=== PATIENT | male | born 1960 | race Hispanic/Latino ===

== ENCOUNTER 2018-05-23 05:50 | Observation (INO) | payer MEDICARE, OTHER ==
[2018-05-21 08:45] VITALS: BP 149/82
[2018-05-21 09:07] LABS: BASOPHILS % (AUTO) 0.5 % (0.0-5.0); EOSINOPHILS % (AUTO) 2.3 % (0.0-8.0); HEMATOCRIT 42.7 % (42-54); MEAN CORPUSCULAR HEMOGLOBIN 30.1 pg (27.0-33.0); MEAN CORPUSCULAR HGB CONC 33.5 g/dL (32.0-36.0); MEAN CORPUSCULAR VOLUME 89.8 fL (79-99); MONOCYTES % (AUTO) 11.6 % (3.0-13.0); NEUTROPHILS % (AUTO) 45.6 % (40.0-77.0); PLATELET COUNT (AUTO) 267 K/uL (130-400); RED BLOOD CELL COUNT(AUTO) 4.75 MIL/uL (4.50-6.20); RED CELL DISTRIBUTION WIDTH 14.2 % (11.0-15.5); WHITE BLOOD COUNT (AUTO) 5.2 K/uL (4.8-10.8)
[2018-05-21 09:12] LABS: APPEARANCE,URINE Clear (CLEAR); BILIRUBIN,URINE Negative (NEGATIVE); COLOR,URINE Yellow (YELLOW); GLUCOSE, URINE (UA) Negative (NEGATIVE); KETONES,URINE Negative (NEGATIVE); LEUKOCYTE ESTERASE ,URINE Negative (NEGATIVE); NITRATE,URINE Negative (NEGATIVE); OCCULT BLOOD,URINE Negative (NEGATIVE); PH,URINE 5.5 (5.0-8.0); PROTEIN,URINE Negative (NEGATIVE)
[2018-05-21 09:16] LABS: CREATININE 1.1 mg/dL (0.5-1.5); POTASSIUM 4.2 mmol/L (3.5-5.1)
[2018-05-21 09:20] LABS: INR 0.95 (0.85-1.15); PARTIAL THROMBOPLASTIN TIME 26.8 SEC (26.3-35.5)
--- NOTE | 2018-05-21 09:24 | NUR ---
[facility] USED TELLO #[id number]
[2018-05-21 09:42] LABS: BACTERIA,URINE Rare /HPF (None Seen); RBC,URINE 0-1 /HPF (0-1); SQUAMOUS EPITHELIAL CELL,UR Rare /HPF (0-2); WBC,URINE 0-1 /HPF (0-1)
[2018-05-23] VITALS (11 sets, daily range): BP systolic 96–132; BP diastolic 65–81
[~2018-05-23] VITALS: Ht 170.2 cm; Wt 80.1 kg
[~2018-05-23 05:50] MED LIST: SODIUM CHLORIDE 0.9% 500ML 500 ML IV SCH
[2018-05-23] MEDS ORDERED: MELA5TAB14 PO (07:03)
[2018-05-23] MEDS ORDERED: OMEP20CA10 PO (07:03)
[2018-05-23] MEDS ORDERED: ASPI-555 PO (07:03)
[2018-05-23] MEDS ORDERED: RANO500T3 PO (07:03)
[2018-05-23] MEDS ORDERED: LEVO25TA54 PO (07:03)
[2018-05-23] MEDS ORDERED: OMEGA 3 PO (07:03)
[2018-05-23] MEDS ORDERED: LISI10TA7 PO (07:03)
[2018-05-23] MEDS ORDERED: SIMV20TA6 PO (07:03)
[2018-05-23] MEDS ORDERED: NITR0.4T50 SL (07:03)
[2018-05-23] MEDS ORDERED: SODIUM CHLORIDE 0.9% 1000ML 1,000 ML IV ONE (07:09)
[2018-05-23] MEDS ORDERED: IOHEXOL-350 50ML VIAL IV ONE ×2 (08:56→11:07)
[2018-05-23] MEDS ORDERED: IOHEXOL 350 MG/ML 100ML INFUS..BTL IV ONE (08:56)
[2018-05-23] MEDS ORDERED: NITROGLYCERIN 5 MG/ML 10 ML VIAL IV ONE (08:56)
[2018-05-23] MEDS ORDERED: LIDOCAINE HCL 2% 20ML ONE (08:57)
[2018-05-23] MEDS ORDERED: MIDAZOLAM HCL 1 MG/ML 2ML VIAL ONE (09:30)
[2018-05-23] MEDS ORDERED: ATROPINE SULFATE 0.1 MG/ML 10 ML SYG IVP ONE (09:47)
[2018-05-23] MEDS ORDERED: ADENOSINE 90MG/30ML VIAL IV ONE (10:10)
[2018-05-23] MEDS ORDERED: HEPARIN SODIUM 1000UNIT/ML 10ML VIAL ONE (10:17)
[2018-05-23] MEDS ORDERED: ASPIRIN 325MG EC TAB 325 MG TABLET.DR PO ONE (10:45)
[2018-05-23] MEDS ORDERED: PRASUGREL HCL 10 MG TABLET ONE (10:45)
[2018-05-23] MEDS ORDERED: SODIUM CHLORIDE 0.9% 1000ML 1,000 ML IV SCH (12:07)
[2018-05-23] MEDS ORDERED: ACETAMINOPHEN 325 MG TAB PO PRN (12:15)
[2018-05-23] MEDS ORDERED: NITROGLYCERIN 0.4 MG SL TAB SL PRN (12:15)
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
[2018-05-23] MEDS: FISH OIL 1000 MG/CAP PO SCH ×2 (13:08→19:56)
--- NOTE | 2018-05-23 14:00 | NUR ---
STATUS BEDREST IN PROGRESS NO COMPLAINTS, RIGHT GROIN WNL. FAMILY IS AT BEDSIDE.
--- NOTE | 2018-05-23 15:00 | NUR ---
STATUS RESTING IN BED, RIGHT GROIN WNL. FAMILY AT BEDSIDE.
--- NOTE | 2018-05-23 17:00 | NUR ---
STATUS RESTING IN BED, RIGHT GROIN WNL. FAMILY AT BEDSIDE.
--- NOTE | 2018-05-23 17:46 | NUR ---
BEDREST COMPLETED RIGHT GROIN WNL. SITTING UPRIGHT IN BED, FAMILY AT BEDSIDE.
[2018-05-23] MEDS ORDERED: ASPIRIN 81MG TAB.CHEW PO SCH (21:00)
[2018-05-23] MEDS ORDERED: SIMVASTATIN 20 MG TABLET PO SCH (21:00)
--- NOTE | 2018-05-23 21:00 | NUR ---
PT RIGHT GROIN ASSESSED. SOFT TO TOUCH, NO TENDERNESS NOTED. NO BLEEDING AT SITE. PT BEDREST COMPLETE. ABLE TO AMBULATE. CONTINUES ON IV FLUIDS AT NS 100ML/HR. PT FAMILY AT BEDSIDE. SAMI SPEAKING. AAO3. PERRLA. ACTIVE BOWEL SOUNDS. LAST BM 05/23.
[2018-05-24 03:42] VITALS: BP 108/71
[2018-05-24 03:46] LABS: HEMATOCRIT 37.5 % (42-54); MEAN CORPUSCULAR HEMOGLOBIN 29.9 pg (27.0-33.0); MEAN CORPUSCULAR HGB CONC 33.3 g/dL (32.0-36.0); MEAN CORPUSCULAR VOLUME 89.8 fL (79-99); PLATELET COUNT (AUTO) 254 K/uL (130-400); RED BLOOD CELL COUNT(AUTO) 4.17 MIL/uL (4.50-6.20); RED CELL DISTRIBUTION WIDTH 14.4 % (11.0-15.5); WHITE BLOOD COUNT (AUTO) 6.5 K/uL (4.8-10.8)
[2018-05-24 04:12] LABS: CREATININE 1.1 mg/dL (0.5-1.5); TROPONIN I 0.26 ng/mL (0.00-0.06)
[2018-05-24] MEDS: FISH OIL 1000 MG/CAP PO SCH (07:34)
[2018-05-24 07:42] VITALS: BP 120/76
--- NOTE | 2018-05-24 08:00 | NUR ---
ASSESSMENT PT IS AAOX4 DENIES CP DENIES SOB DENIES SOB DENIES NV. RIGHT GROIN WNL DRESSING CLEAN DRY AND INTACT. NO COMPLAINTS. CALL LIGHT WITHIN REACH.
[2018-05-24] MEDS ORDERED: PRAS10TA6 PO (08:39)
[2018-05-24] MEDS ORDERED: PANTOPRAZOLE SODIUM 40 MG TABLET.DR PO SCH (09:00)
[2018-05-24] MEDS ORDERED: LISINOPRIL 10 MG TABLET PO SCH (09:00)
[2018-05-24] MEDS ORDERED: LEVOTHYROXINE 25 MCG TABLET PO SCH (09:00)
[2018-05-24] MEDS ORDERED: **HM** MELATONIN 5MG PO PRN (09:00)
[2018-05-24] MEDS ORDERED: PRASUGREL HCL 10 MG TABLET PO SCH (09:00)
--- NOTE | 2018-05-24 10:00 | NUR ---
DR Eros ORELLANA ROUNDED ORDERS RECEIVED
--- NOTE | 2018-05-24 10:50 | NUR ---
DISCHARGE PATIENT AND FAMILY VERBALIZE DC INSTRUCTIONS UNDERSTANDING. AGREE TO TAKE MEDS ORDERED AGREE TO FOLLOW UP WITH DR Eros ORELLANA. PIV REMOVED CATH TIP INTACT, TELE PACK REMOVED. DOWN VIA WC TO VEHICLE.
== END 2018-05-24 10:50 | disposition home or self-care (01) ==
LOC: DAH 05:50 → DAHIP 05:51 → 2AH 13:05
PROVIDERS: ADMIT Internal Medicine Cardiovascular Disease; ATTEND Internal Medicine Cardiovascular Disease
DX: I25.119 Atherosclerotic heart disease of native coronary artery with unspecified angina pectoris (principal); E03.9 Hypothyroidism, unspecified; E11.9 Type 2 diabetes mellitus without complications; E78.5 Hyperlipidemia, unspecified; E78.00 Pure hypercholesterolemia, unspecified; I10 Essential (primary) hypertension; I25.82 Chronic total occlusion of coronary artery; F41.9 Anxiety disorder, unspecified; Z79.02 Long term (current) use of antithrombotics/antiplatelets; Z79.82 Long term (current) use of aspirin; Z79.890 Hormone replacement therapy; Z79.899 Other long term (current) drug therapy; Z82.49 Family history of ischemic heart disease and other diseases of the circulatory system; Z80.9 Family history of malignant neoplasm, unspecified; Z79.01 Long term (current) use of anticoagulants
CPT/HCPCS: 36415 ×2; 71045; 80048 ×2; 80061; 81001; 82550; 82948 ×3; 83874; 84484; 85025; 85027; 85610; 85730; 93005 ×2; 93458; 93571; C1725 ×2; C1760; C1769 ×3; C1874; C1887 ×2; C1894 ×2; C9600; G0378 ×29; J0153; J1644 ×2; J2250; J3490 ×2; J7030 ×2; Q9965; Q9967 ×3; 99156; 99157; J0461

== ENCOUNTER 2018-05-28 18:36 | Emergency (ER) | payer OTHER ==
[~2018-05-28 18:36] MED LIST changes: +ASPI-555 PO; +LEVO25TA54 PO; +LISI10TA7 PO; +MELA5TAB14 PO; +NITR0.4T50 SL; +OMEGA 3 PO; +OMEP20CA10 PO; +PRAS10TA6 PO; +SIMV20TA6 PO; -SODIUM CHLORIDE 0.9% 500ML 500 ML IV SCH
[2018-05-28] MEDS ORDERED: ASPIRIN 325 MG TABLET ONE (19:11)
[2018-05-28 19:34] LABS: BASOPHILS % (AUTO) 0.5 % (0.0-5.0); EOSINOPHILS % (AUTO) 1.9 % (0.0-8.0); HEMATOCRIT 39.9 % (42-54); LYMPHOCYTES % (AUTO) 33.9 % (21.0-51.0); MEAN CORPUSCULAR HEMOGLOBIN 29.9 pg (27.0-33.0); MEAN CORPUSCULAR HGB CONC 33.5 g/dL (32.0-36.0); MEAN CORPUSCULAR VOLUME 89.4 fL (79-99); MONOCYTES % (AUTO) 11.5 % (3.0-13.0); NEUTROPHILS % (AUTO) 52.2 % (40.0-77.0); NUCLEATED RED BLOOD CELLS 0.1 % (0.0-0.19); PLATELET COUNT (AUTO) 273 K/uL (130-400); RED BLOOD CELL COUNT(AUTO) 4.46 MIL/uL (4.50-6.20); RED CELL DISTRIBUTION WIDTH 14.1 % (11.0-15.5); WHITE BLOOD COUNT (AUTO) 8.2 K/uL (4.8-10.8)
[2018-05-28] MEDS ORDERED: NITROGLYCERIN 1GM/1 INCH PACKET TD ONE (19:37)
[2018-05-28 19:48] LABS: INR 0.95 (0.85-1.15); PARTIAL THROMBOPLASTIN TIME 25.4 SEC (26.3-35.5)
[2018-05-28 20:32] LABS: POTASSIUM 3.6 mmol/L (3.5-5.1)
[2018-05-28 20:37] LABS: ALBUMIN 3.9 g/dL (3.5-5.0); BILIRUBIN,TOTAL 0.2 mg/dL (0.2-1.0); TOTAL PROTEIN, SERUM 7.9 g/dL (6.0-8.3)
== END 2018-05-29 00:08 | disposition home or self-care (01) ==
LOC: EDH 18:36
DX: R07.89 Other chest pain (principal); E78.5 Hyperlipidemia, unspecified; I10 Essential (primary) hypertension; K21.9 Gastro-esophageal reflux disease without esophagitis; I25.10 Atherosclerotic heart disease of native coronary artery without angina pectoris; Z79.899 Other long term (current) drug therapy
CPT/HCPCS: 36415; 71045; 80053; 82550; 84484; 85025; 85610; 85730; 93005

== ENCOUNTER → 2023-06-08 | Outpatient (CLI) | payer OTHER ==
[~2023-06-08] MED LIST changes: -ASPI-555 PO; +ASPI-556 PO; +LISI10TA24 PO; -LISI10TA7 PO; -OMEP20CA10 PO; +OMEP20CA12 PO; +SIMV-43 PO; -SIMV20TA6 PO
[2023-06-08] MEDS: REGADENOSON 0.4 MG/5 ML PF SYG IVP SCH (13:50)
== END | disposition home or self-care (01) ==
LOC: RAH 07:43
PROVIDERS: ATTEND Internal Medicine Cardiovascular Disease
DX: I25.119 Atherosclerotic heart disease of native coronary artery with unspecified angina pectoris (principal)
CPT/HCPCS: 78452; 93017; J2785; A9500 ×2; 96374

== ENCOUNTER 2023-08-12 22:15 | Emergency (ER) | payer OTHER ==
[~2023-08-12] VITALS: Ht 167.6 cm; Wt 77.1 kg
[~2023-08-12 22:15] MED LIST changes: -MELA5TAB14 PO; +MELA5TAB66 PO
[2023-08-12 23:15] LABS: BASOPHILS # (AUTO) 0.07 K/uL (0.00-0.20); BASOPHILS % (AUTO) 0.8 % (0.0-5.0); EOSINOPHILS # (AUTO) 0.25 K/uL (0.00-0.70); EOSINOPHILS % (AUTO) 2.7 % (0.0-8.0); HEMATOCRIT 38.2 % (42-54); IMMATURE GRANULOCYTE ABSOLUTE 0.04 K/uL (0-1); LYMPHOCYTES # (AUTO) 2.8 K/uL (1.0-4.8); LYMPHOCYTES % (AUTO) 29.6 % (21.0-51.0); MEAN CORPUSCULAR HEMOGLOBIN 30.2 pg (27.0-33.0); MEAN CORPUSCULAR VOLUME 88.6 fL (79-99); MONOCYTES # (AUTO) 1.4 K/uL (0.1-1.0); MONOCYTES % (AUTO) 15.3 % (3.0-13.0); NEUTROPHILS # (AUTO) 4.8 K/uL (1.8-7.7); NEUTROPHILS % (AUTO) 51.2 % (40.0-77.0); PLATELET COUNT (AUTO) 266 K/uL (130-400); RED BLOOD CELL COUNT(AUTO) 4.31 MIL/uL (4.50-6.20); RED CELL DISTRIBUTION WIDTH 13.9 % (11.0-15.5); WHITE BLOOD COUNT (AUTO) 9.3 K/uL (4.8-10.8)
[2023-08-12 23:23] LABS: CREATININE 1.1 mg/dL (0.5-1.3); POTASSIUM 4.2 mmol/L (3.5-5.1)
[2023-08-12 23:28] LABS: ALBUMIN 3.6 g/dL (3.5-5.0); BILIRUBIN,TOTAL 0.4 mg/dL (0.2-1.0); MAGNESIUM 2.1 mg/dL (1.80-2.40); TOTAL PROTEIN, SERUM 8.2 g/dL (6.0-8.3)
[2023-08-13 00:44] LABS: B-TYPE NATRIURETIC PEPTIDE 7 pg/mL (0-100)
[2023-08-13 02:45] VITALS: BP 137/63; PULSE 75; RESP 18; O2SAT 99
[2023-08-13] MEDS ORDERED: BENZ-39 PO (03:01)
== END 2023-08-13 03:08 | disposition home or self-care (01) ==
LOC: EDH 22:15
DX: J06.9 Acute upper respiratory infection, unspecified (principal); R05.9 Cough, unspecified; I10 Essential (primary) hypertension; E78.00 Pure hypercholesterolemia, unspecified; E11.9 Type 2 diabetes mellitus without complications; E05.90 Thyrotoxicosis, unspecified without thyrotoxic crisis or storm; Z79.899 Other long term (current) drug therapy
CPT/HCPCS: 36415; 71045; 71250; 80053; 82550; 83735; 83880; 84484; 85025; 93005